=== PATIENT | male | born 1980 | race Caucasian/White ===

== ENCOUNTER 2023-04-20 13:04 | Emergency (ER) | payer MEDICAID ==
[~2023-04-20] VITALS: Ht 177.8 cm; Wt 81.0 kg
[2023-04-20 13:09] VITALS: BP 134/84
--- NOTE | 2023-04-20 15:08 | NUR ---
central supply tech at bedside.
[2023-04-20] MEDS ORDERED: PENICILLIN G BENZATHINE 2,400,000 UNIT/4 ML SYRINGE IM ONE (16:25)
== END 2023-04-20 16:56 | disposition home or self-care (01) ==
LOC: ER 13:05
DX: A51.0 Primary genital syphilis (principal)
CPT/HCPCS: 36415; 86592; 96372; 99283; J0561; 96374